=== PATIENT | male | born 1925 | race Caucasian/White ===

== ENCOUNTER 2016-10-26 19:11 | Inpatient (IN) | payer MEDICARE, OTHER ==
[~2016-10-26] VITALS: Ht 172.7 cm; Wt 72.0 kg
[~2016-10-26 19:11] MED LIST: ACET325C PO; BISA10SU61 RC; FINA5TAB9 PO; FLUO20CA25 PO; FURO-128 PO; HYDR-4003 PO; IBUP-1827 PO; ISOS30TA4 PO; LACT10SO PO; LOPE2CAP PO; MAG355OR31 PO; METO25TA99 PO; NITR0.4T6 SL; PINK BISMUTH PO; POTA-62 PO; PRAM0.122 PO; SENN-133 PO; TRAM50TA2 PO; ZOLP10TA5 PO
[2016-10-26 19:30] VITALS: BP 109/52; PULSE 72; RESP 17; O2SAT 95
[2016-10-26 20:00] LABS: BASOPHILS % (AUTO) 0.1 % (0-3); Mean Corpuscular Hemoglobin 33.7 pg (27.0-35.0)
[2016-10-26 20:04] LABS: EOSINOPHILS % (AUTO) 0.4 % (0-5); MONOCYTES % (AUTO) 4.9 % (4-12); Mean Corpuscular Volume 100.2 fL (81-100); NEUTROPHILS % (AUTO) 78.2 % (40-74); Platelet Count 119 bil/L (150-400)
[2016-10-26 20:40] LABS: TROPONIN T 0.08 ug/L (0.0-0.011)
[2016-10-26] MEDS: 0.9% Sodium Chloride 1,000 ML IV SCH ×2 (21:00→21:35)
--- NOTE | 2016-10-26 21:18 | ED.REPORT ---
HPI-Abd Pain M 40 and Over Date of Service Oct 26, 2016 ED Provider: Dr. Barber Apple D.O. An 89 year old male with a medical history including Parkinson's disease, CAD, atrial fibrillation, CHF, hypertension, dementia, and hearing loss presents to the ED via EMS from [facility] accompanied by his son with nausea and vomiting onset 1845 today. Associated symptoms include chest pain, shakiness , diarrhea, and fever (38.1 in ED). He denies abdominal pain or chest pain currently. Nursing Notes Stated Complaint: VOMITING/NAUSEA Chief Complaint: Male Abdominal Pain Nursing Notes Reviewed: Yes Allergies: Coded Allergies: Penicillins (Unverified Allergy, Unknown, 04/23/16) PT REPORTS A REACTION BUT DOES NOT RECALL EXPOSURE TO PCN Scheduled Acetaminophen (Acetaminophen) 325 Mg Capsule 650 MG PO TID Finasteride (Finasteride) 5 Mg Tablet 5 MG PO DAILY Fluoxetine (Fluoxetine) 20 Mg Capsule 20 MG PO DAILY Furosemide (Lasix) 40 Mg Tablet 60 MG PO BID Isosorbide MN ER (Isosorbide MN ER) 30 Mg Tab.er.24h 30 MG PO DAILY Metoprolol Succinate ER (Metoprolol Succinate ER) 25 Mg Tab.er.24h 12.5 MG PO DAILY Potassium Chloride ER (Potassium Chloride ER) 20 Meq Tablet.er 20 MEQ PO BID TAKE WITH FOOD Pramipexole Dihydrochloride (Mirapex) 0.125 Mg Tablet 0.125 MG PO QID Sennosides (Senna) 8.6 Mg Tablet 8.6 MG PO HS Zolpidem (Zolpidem) 10 Mg Tablet 5 MG PO HS Scheduled PRN ([pink bismuth]) 30 ML PO DAILY PRN PRN For Diarrhea or Loose Stool Acetaminophen (Acetaminophen) 325 Mg Capsule 650 MG PO q4 hours PRN PRN For Pain Bisacodyl (Dulcolax Rectal) 10 Mg Supp.rect 10 MG RC DAILY PRN PRN For Constipation Ibuprofen (Ibuprofen) 600 Mg Tablet 600 MG PO TID PRN PRN For Pain Mag Hydrox/Al Hydrox/Simeth (Antacid M Liquid) 355 Ml Oral.susp 355 ML PO QID PRN PRN For Dyspepsia or Heartburn Nitroglycerin SL (Nitroglycerin SL) 0.4 Mg Tab.subl 0.4 MG SL DIRECTED PRN PRN For Chest Pain General Time Seen by MD: 21:17 Chief Complaint Other (Nausea and Vomiting ) Hx Obtained From: Patient, Son Arrived By: Ambulance Sudden in Onset?: Yes Onset Occurred: 5 - 8 hours ago Symptom Duration: Since onset Severity: Current: No pain currently Associated with: Reports: Chest pain, Diarrhea, Fever Pertinent Negative: Relieved by nothing Recent Healthcare: No recent doctor visit Past Medical History Past Medical History Parkinson's disease CAD Atrial Fibrillation Basal cell carcinoma left sikh Dementia CVA Functional paraplegia Hearing loss Reports: Congestive heart failure, Hypertension Past Surgical History Left axillary mass biopsy Pacemaker placement Smoking History Former Smoker Social History [facility] Other Social History: Good social support, Lives in halfway Ambulatory Status Independent Review of Systems Constitutional: Reports: Fever (38.1 in ED) Respiratory: Denies: Non-productive cough, Shortness of breath Cardiovascular: Reports: Chest pain (Resolved) GI: Reports: Diarrhea, Nausea, Vomiting, Denies: Abdominal pain Complete sys rev & neg: except as marked. Neurologic: Reports: Shaking Physical Exam Initial Vital Signs Vital Signs (First) Date Time Temp Pulse Resp B/P Pulse Ox O2 Delivery O2 Flow Rate FiO2 10/26/16 19:30 38.1 72 17 109/52 95 Room Air 10/26/16 23:11 2 Initial VS: Reviewed Head / Eyes: Atraumatic, Normocephalic Neck: Supple, Full range of motion Skin: Warm, Dry, No cyanosis Neurologic: Alert, Nonfocal Psychiatric: Mood/affect normal, Behavior normal, Normal thought content General/Constitutional: Awake, Alert Demented but answers questions well Respiratory / Chest: Breath sounds NL, Breath sounds = bilat, No respiratory distress Cardiovascular: Heart rate NL, Regular rhythm, Heart sounds NL Abdomen: Soft Tenderness/Guarding/Rebound: Positive: Tender diffuse (Grimaced on palpation) ENT: Atraumatic, Airway patent Mouth: Positive: Mucous membranes dry Interpretation & Diagnostics Lab Results Interpretation Result Diagram: 10/27/1619910/27/16 020 Test 10/26/16 19:50 Hold Christy Top Tube Received (Received) ECG Interpretation ECG Interpretation: Sinus rhythm rate 77 Frequent PVCs No STEMI Time: 20:09 Interpreted by: ED physician X-Ray Chest Interpretation Chest Xray Interpretation: IMPRESSION: Right pleural effusion with bibasilar consolidation or atelectasis. Dictated by: Michelle Francois M.D. on 10/26/2016 at 21:24 View: Portable, 1 view Interpretation / Wet Read by: Interpret - Radiologist CT Abd / Pelvis Interpretation CONCLUSION: No specific acute abdominal process. Right pleural effusion. Correlate with history. Mild prominence of the left renal collecting system associated with some irregularity fo the bladder. Urinary tract infection and bladder outlet obstruction can be excluded clinically. Low density lesions in the liver, probably cysts. These may need follow-up to confirm. Small cortical lesions in both kidneys. These also may need follow-up depending on history. Atherosclerotic vascular disease. Transmitted to ED by Dr. Antolin Day M.D. at 10/26/2016 - 10:44:38 Study type: Abdominal CT no contrast Interpretation / Wet Read by: Interpret - Radiologist Re-Eval/Medical Decision Source of Hx: Old records Time of Eval: 21:30 Patient Status: Condition improved Re-Evaluation/Progress Note: Discussed with patient diagnosis and plan for admit. Patient agrees with plan for care and all questions were addressed. Consultation : Referral / Consult Name: Aime Marie MD Consulted With: Hospitalist Call Returned at: 00:15 Public Employment Mediator: Agrees with eval, Agrees with plan, Accepts admit Counseled Regarding: Diagnosis, Need for admission Discharge & Departure Shift Change Sign-Out Response to Therapy: Improved Primary Impression: Gastroenteritis Additional Impressions: Fever Fever type: unspecified Qualified Code: R50.9 - Fever, unspecified Chest pain Chest pain type: unspecified Qualified Code: R07.9 - Chest pain, unspecified Elevated troponin Disposition: ADMITTED TO HOSPITAL Vital Signs - All Vital Signs Date Time Temp Pulse Resp B/P Pulse Ox O2 Delivery O2 Flow Rate FiO2 10/27/16 00:54 78 16 94/49 92 Nasal Cannula 2 10/26/16 23:37 79 15 103/53 94 Nasal Cannula 2 10/26/16 23:11 82 15 90/44 96 Nasal Cannula 2 10/26/16 23:05 82 16 80/42 92 Room Air 10/26/16 19:30 38.1 72 17 109/52 95 Room Air )( All Prior VS Reviewed: Yes Condition: Stable Referrals: Christiano De Anda MD (PCP) Scribe Attestation Portions of this note were transcribed by Jacque Ponce. Dr. Ambika Bloom, personally performed the history, physical exam, and medical decision-making; I reviewed and confirmed the accuracy of the information in the transcribed note. Signed by: Niko Menjivar, 10/27/2016, 01:47 copies to: Christiano De Anda MD, Todd P DO Oct 26, 2016 21:18 JACQUE PONCE Oct 26, 2016 21:42 Total Protein 6.2g/dL (6.4-8.4) Albumin 3.0g/dL (3.4-5.0) Hold Christy Top Tube Received (Received) ECG Interpretation ECG Interpretation: Sinus rhythm rate 77 Frequent PVCs No STEMI Time: 20:09 Interpreted by: ED physician X-Ray Chest Interpretation Chest Xray Interpretation: IMPRESSION: Right pleural effusion with bibasilar consolidation or atelectasis. Dictated by: Michelle Francois M.D. on 10/26/2016 at 21:24 View: Portable, 1 view Interpretation / Wet Read by: Interpret - Radiologist CT Abd / Pelvis Interpretation CONCLUSION: No specific acute abdominal process. Right pleural effusion. Correlate with history. Mild prominence of the left renal collecting system associated with some irregularity fo the bladder. Urinary tract infection and bladder outlet obstruction can be excluded clinically. Low density lesions in the liver, probably cysts. These may need follow-up to confirm. Small cortical lesions in both kidneys. These also may need follow-up depending on history. Atherosclerotic vascular disease. Transmitted to ED by Dr. Antolin Day M.D. at 10/26/2016 - 10:44:38 Study type: Abdominal CT no contrast Interpretation / Wet Read by: Interpret - Radiologist Re-Eval/Medical Decision Source of Hx: Old records Time of Eval: 21:30 Patient Status: Condition improved Re-Evaluation/Progress Note: Discussed with patient diagnosis and plan for admit. Patient agrees with plan for care and all questions were addressed. Consultation : Referral / Consult Name: Aime Marie MD Consulted With: Hospitalist Call Returned at: 00:15 Public Employment Mediator: Agrees with eval, Agrees with plan, Accepts admit Counseled Regarding: Diagnosis, Need for admission Discharge & Departure Shift Change Sign-Out Response to Therapy: Improved Primary Impression: Gastroenteritis Additional Impressions: Fever Fever type: unspecified Qualified Code: R50.9 - Fever, unspecified Chest pain Chest pain type: unspecified Qualified Code: R07.9 - Chest pain, unspecified Elevated troponin Disposition: ADMITTED TO HOSPITAL Vital Signs - All Vital Signs Date Time Temp Pulse Resp B/P Pulse Ox O2 Delivery O2 Flow Rate FiO2 10/27/16 00:54 78 16 94/49 92 Nasal Cannula 2 10/26/16 23:37 79 15 103/53 94 Nasal Cannula 2 10/26/16 23:11 82 15 90/44 96 Nasal Cannula 2 10/26/16 23:05 82 16 80/42 92 Room Air 10/26/16 19:30 38.1 72 17 109/52 95 Room Air )( All Prior VS Reviewed: Yes Condition: Stable Referrals: Christiano De Anda MD (PCP) Scribe Attestation Portions of this note were transcribed by Jacque Ponce. I, Dr. Apple, personally performed the history, physical exam, and medical decision-making; I reviewed and confirmed the accuracy of the information in the transcribed note. Signed by: Niko Menjivar, 10/27/2016, 01:47 copies to: Christiano De Anda MD, Todd P DO Oct 26, 2016 21:18 JACQUE PONCE Oct 26, 2016 21:42
--- NOTE | 2016-10-26 21:26 | DRSVH ---
PROCEDURE: X-RAY CHEST ONE VIEW, PORTABLE ([id number]) INDICATIONS: FEVER COUGH TECHNIQUE: One view of the chest was acquired. COMPARISON: [facility], CT, CT CHEST WO [facility], 03/29/2016, 12:07. [facility], CT, CT CHEST ABD PELVIS WO CON, 07/08/2016, 14:18. FINDINGS: Surgical changes and devices: There is a cardiac pacemaker. Lungs and pleura: There is a small right pleural effusion with right basilar consolidation or atelec tasis. No pneumothorax. Mediastinum: Mediastinal contours appear normal. Heart size is normal. Bones and chest wall: No suspicious bony lesions. Overlying soft tissues appear unremarkable. IMPRESSION: Right pleural effusion with bibasilar consolidation or atelectasis. Dictated by: Michelle Francois M.D. on 10/26/2016 at 21:24 Approved by: Michelle Francois M.D. on 10/26/2016 at 21:25
[2016-10-26] MEDS ORDERED: Ondansetron 2 mg/mL 2 mL Inj IVPUSH PRN (21:30)
[2016-10-26] MEDS ORDERED: Iohexol 300 mg/mL 30 mL Inj PO ONE (21:45)
[2016-10-26] MEDS ORDERED: fentaNYL-PF 50 mCg/mL 2 mL Inj IVPUSH ONE (21:45)
[2016-10-26] MEDS ORDERED: 0.9% Sodium Chloride 1,000 ML IV ONE (23:00)
[2016-10-26] MEDS ORDERED: Acetaminophen IV 1,000 MG in IV Premix 1 EACH IV ONE (23:00)
[2016-10-26 23:05] VITALS: BP 80/42; PULSE 82; RESP 16; O2SAT 92
[2016-10-26 23:11] VITALS: BP 90/44; PULSE 82; RESP 15; O2SAT 96
[2016-10-26 23:37] VITALS: BP 103/53; PULSE 79; RESP 15; O2SAT 94
[2016-10-27] VITALS (10 sets, daily range): BP systolic 87–115; BP diastolic 47–69; PULSE 65–101; RESP 14–18; O2SAT 92–98
[2016-10-27] MEDS ORDERED: 0.9% Sodium Chloride 500 ML IV ONE (00:05)
[2016-10-27] MEDS ORDERED: Polyethylene Glycol (PEG) 17 Gm Powder PO PRN (01:25)
[2016-10-27] MEDS ORDERED: Ondansetron 2 mg/mL 2 mL Inj IVPUSH PRN (01:25)
[2016-10-27] MEDS ORDERED: Alum-Mag Hydrox-Simeth 30 mL Suspension PO PRN (01:25)
[2016-10-27 02:25] LABS: BASOPHILS % (AUTO) 0 % (0-3); Mean Corpuscular Hemoglobin 33.5 pg (27.0-35.0); Mean Corpuscular Volume 101.4 fL (81-100); Platelet Count 112 bil/L (150-400)
--- NOTE | 2016-10-27 02:31 | PCM.HPMED ---
Subjective Date of Service Oct 27, 2016 Primary Provider: Admitting Physician: Aime Marie MD Primary Care Physician: Christiano De Anda MD Attending Physician: Aime Marie MD Chief Complaint: Nausea, vomiting, diarrhea History of Present Illness: Patient is an 89-year-old male with dementia, Parkinson's disease, CAD, CHF, atrial fibrillation and hypertension presenting with nausea, vomiting and diarrhea. The patient is a resident of [facility] and unable to provide any meaningful history. At time of visit there is no family at bedside. Much of the history is obtained from chart review. Patient reportedly had complaints of chest pain, nausea, vomiting and diarrhea at his living facility but it was noted that the patient denied chest pain en route to [facility] ED. At time of visit, the patient reports feeling well without complaints. Patient denies chest pain, nausea, emesis, diarrhea, abdominal pain, cough, chills. CT scan of abdomen and pelvis reads mild prominence of the left renal collecting system associated with some irregularity of the bladder; low density lesions in the liver, probable cysts, and small cortical lesions in both kidneys, otherwise no specific acute abdominal process was identified . In the ED, vitals: temp 38.1, HR 72, RR 17 satting 95% on room air, BP 109/52. Notable labs: creatinine 1.49, troponin 0.080. Review of Systems: Unable to obtain due to dementia Allergies Coded Allergies: Penicillins (Unverified Allergy, Unknown, 04/23/16) PT REPORTS A REACTION BUT DOES NOT RECALL EXPOSURE TO N Home Medications Unable to obtain. Medication reconciliation needs to be completed PMH Parkinson's disease CAD Atrial fibrillation Hypertension Dementia Hearing loss Diastolic CHF Sick sinus syndrome s/p PPM CVA Basal cell carcinoma left sikh History of prostate cancer Functional paraplegia uses a wheelchair due to balance problems . Surgical History Left axillary mass biopsy Pacemaker placement Family History Mother and father of "old age" Social History Occupation: Retired Hx Alcohol Use: No Hx Substance Use: No Smoking Status: Former Smoker Living Arrangement: Other ([facility]) Exam Vital Signs Vital Sign - Last Date Time Temp Pulse Resp B/P Pulse Ox O2 Delivery O2 Flow Rate FiO2 10/27/16 01:23 36.5 74 16 95/49 98 Nasal Cannula 2.00 Intake and Output 2/04/0410/26/16 10/27/16 Cumulative From/Thru 15:00 23:00 07:00 10/26/16 19:30 - 10/27/16 01:23 Intake Total 2000 ml 2000 ml Balance 2000 ml 2000 ml Intake IV Total 2000 ml 2000 ml Exam General: Patient lying supine in bed. No acute distress, well-developed, well- nourished, appropriately interactive HEENT: Normocephalic, atraumatic. Pupils equal, round, and reactive to light. Anicteric sclerae. Dry mucous membranes. Hearing aids bilaterally. Left temporal area with a ulcerated lesion. Neck: Supple with full range of motion. No jugular venous distension. No bruits. No lymphadenopathy or thyromegaly. Cardiovascular: Regular rate and rhythm with no murmurs, rubs, or gallops appreciated. Left chest wall with pacemaker. Pulmonary: Clear to auscultation bilaterally. Normal respiratory effort with no use of accessory muscles. Abdomen: Bowel tones present. Nontender, nondistended. Extremities: Bilateral lower extremities with moderate pitting edema just distal to the knees, left>right. Right lower extremity with some erythema. Skin: Diffuse seborrheic keratosis throughout upper body. Neurological: Cranial nerves grossly intact. Psychiatric: Normal mood and affect. Lab and Diagnostics Result Diagram: 10/26/16194910/26/161949 X-Rays, CTs and MRIs Exam date: 10/26/2016 CT ABDOMEN AND PELVIS CONCLUSION: No specific acute abdominal process. Right pleural effusion. Correlate with history. Mild prominence of the left renal collecting system associated with some irregularity of the bladder. Urinary tract infection and bladder outlet obstruction should be excluded clinically. Low density lesions in the liver, probably cysts. These may need followup to confirm. Small cortical lesions in both kidneys. These also may need followup depending on history. Atherosclerotic vascular disease. Radiologist: Antolin Day MD ----- Date of Service: 10/26/161950 PROCEDURE: X-RAY CHEST ONE VIEW, PORTABLE ([id number]) INDICATIONS: FEVER COUGH TECHNIQUE: One view of the chest was acquired. COMPARISON: [facility], CT, CT CHEST WO CON, 03/29/2016, 12:07. [facility], CT, CT CHEST ABD PELVIS WO CON, 07/08/2016, 14:18. FINDINGS: Surgical changes and devices: There is a cardiac pacemaker. Lungs and pleura: There is a small right pleural effusion with right basilar consolidation or atelectasis. No pneumothorax. Mediastinum: Mediastinal contours appear normal. Heart size is normal. Bones and chest wall: No suspicious bony lesions. Overlying soft tissues appear unremarkable. IMPRESSION: Right pleural effusion with bibasilar consolidation or atelectasis. Dictated by: Michelle Francois M.D. on 10/26/2016 at 21:24 Approved by: Michelle Francois M.D. on 10/26/2016 at 21:25 Assessment & Plan Patient is an 89-year-old male with dementia, Parkinson's disease, CAD, CHF, atrial fibrillation and hypertension presenting with nausea, vomiting and diarrhea and admitted for elevated troponin and hypotension. 1. Acute nausea, vomiting and diarrhea. Present on admission. Active -CT scan did not identify any acute abdominal process -Likely infectious etiology -Supportive care with Zofran PRN -Gentle IV fluids -Stool PCR pending 2. Elevated troponin. Acute. Present on admission. Active -Troponin 0.080 -Patient has history of mildly elevated troponin but has cardiac risk factors including: age, hypertension, atherosclerotic vascular disease -Elevation in troponin possibly demand. EKG without ST elevation or depression. Repeat EKG in the AM -Trending troponin 3. Acute kidney injury, unknown acuity. Present on admission. Active -Creatinine 1.49 on admit. Normal creatinine 06/2016 -Likely from volume depletion as result of #1 -Gentle IV fluids -CMP 4. Acute hypotension. Present on admission. Active -BP 80/42 in the ED -Likely secondary to volume depletion from #1 -Gentle IV fluids 5. Thrombocytopenia, unknown acuity. Present on admission. Active -Mild decreased platelets [id number] -Uncertain etiology - possibly infection, medication-induced -Follow with CBC 6. Diastolic heart failure, chronic. Present on admission. Stable -Echocardiogram from 03/2016 shows EF 55-60% with inferior wall moderate hypokinesis and septal motion consistent with conduction abnormality -Will hold Lasix due to hypotension. Reassess fluid status in AM 7. Pleural effusion, chronic. Present on admission -Present on previous imaging studies going back to 2012 8. Atrial fibrillation, chronic. Present on admission -Currently rate controlled 9. Essential hypertension, chronic. Present on admission -Currently hypotensive, see #4 above -Hold antihypertensives Medication reconciliation requires completion Patient Status: Patient is admitted under observation status with expected length of stay less than 2 midnights due to risk of adverse event and complexity of treatment plan VTE Prophylaxis: Sub-Q Heparin (Unfractionated) Resuscitation Status: DNR/DNI:Do Not Resuscitate/Intubate (Personally discussed code status with patient's next of kin and son, Yanick Hollingsworth )) Attending Statement The patient was seen and examined together with Dr. Beltran on 10/27 and I agree with the history, exam and plan as outlined in the note above. Hussein Beltran DO Oct 27, 2016 02:31 Aime Marie MD Oct 27, 2016 03:07
[2016-10-27 02:45] LABS: EOSINOPHILS % (AUTO) 0 % (0-5); MONOCYTES % (AUTO) 12 % (4-12); NEUTROPHILS % (AUTO) 66 % (40-74)
[2016-10-27 03:10] LABS: TROPONIN T 0.075 ug/L (0.0-0.011)
[2016-10-27] MEDS ORDERED: 0.9% Sodium Chloride 1,000 ML IV ONE (03:35)
--- NOTE | 2016-10-27 07:37 | NUR ---
Admit/BG Pt arrived to [facility] @ 0120 to RM 2022. Pt wheelchair at baseline and unable to transfer self to bed. Pt has dementia and unable to provide history but able to give birthdate and last name. Admission completed with records from pt residence and Med rec unable to be completed at this time. Pt will be Q2 turns and is incontinent of stool and urine. Around 0530 pt showed signs of rigors but was afebrile and breathing very hard, SpO2 difficult to obtaine r/t shaking. Pt BP 110/74 and BG check and was 68, Pt able to drink Iuka juice and Apple juice and was able to become more calm and less shaky and fell back asleep. DAY RN will recheck BG. VSS and Tele Aflutter with pacing 70's to 80's.
[2016-10-27] MEDS: Heparin 5,000 Unit/mL Inj SUBQ SCH ×3 (09:06→20:06)
--- NOTE | 2016-10-27 09:08 | DRSVH ---
PROCEDURE: CT ABDOMEN AND PELVIS WITHOUT CONTRAST ([id number]) INDICATIONS: 89 year-old man with abdominal pain, vomiting, renal insufficiency. TECHNIQUE: After administration of oral contrast, 5 mm thick sections acquired from the diaphragms to the symphy sis. 5 mm coronal and sagittal reformats were then performed. For radiation dose reduction, the fol lowing was used: automated exposure control, adjustment of mA and/or kV according to patient size. COMPARISON: Merged With [facility], CR, XR CHEST 1VW (PORTABLE), 10/26/2016, 20:11. [facility], CT, CT NECK CHEST ABD PELVIS W CON, 04/19/2016, 12:59. Merged With [facility], CT, CT CHEST A BD PELVIS WO CON, 07/08/2016, 14:18. FINDINGS: Image quality: Excellent. ABDOMEN: Lung bases: There is a moderate right pleural effusion and trace left effusion, unchanged. Bibasilar atelectasis. Heart size is mildly increased. Solid organs: There are several low density nodules are noted in the liver, measuring up to 1.3 cm. L iver and spleen are normal in size. Gallbladder contains sludge or noncalcified stones. Pancreas is normal in contours. No adrenal nodules. Kidneys are normal in size. There is a 9 mm hyperdense ex ophytic nodule in the superior pole of the right kidney. Mild left pelviectasis. Peritoneum and bowel: Unenhanced bowel loops demonstrate normal wall thickness and caliber. No free fluid or air. Nodes and vessels: No retroperitoneal or mesenteric adenopathy by size criteria. Aorta and inferior vena cava are normal in caliber. Severe atherosclerosis. Miscellaneous: No ventral hernias. PELVIS: Genitourinary: Bladder is semicontracted. Mild bladder wall thickening is noted. There is a small bl adder diverticulum in the anterior bladder. Enlarged prostate. Miscellaneous: No inguinal hernias or adenopathy. Bones: No suspicious bony lesions. No vertebral body compression fractures. There is osteopenia. S evere degenerative disc disease i and facet arthropathy n lumbar spine. There is posterior decompress ion in the lower lumbar spine. IMPRESSION: 1. No definitive CT findings to abdominal pain. 2. Mild left pelviectasis. No renal calculi. 3. A 9 mm hyperdense exophytic nodule in the superior pole of the right kidney. Recommend further george luation with renal ultrasound to rule out solid renal masses. 4. Contracted bladder. The bladder wall maybe slightly thickened. There is a small bladder diverticul um anteriorly. 5. Enlarged prostate. 6. Severe atherosclerosis. 7. Moderate right effusion and trace left effusion. 8. Mild cardiomegaly. No significant discrepancy with the night court magistrate radiology preliminary report. Dictated by: Michelle Francois M.D. on 10/27/2016 at 8:41 Approved by: Michelle Franocis M.D. on 10/27/2016 at 9:06
[2016-10-27] MEDS ORDERED: Bismuth Subsalicylate 240 mL Suspension PO PRN (15:55)
--- NOTE | 2016-10-27 17:23 | NUR ---
Case Management: Patient has dementia, so I called his son Yanick at [phone] at 1724 to explain HENSON. Yanick states he has DPOA for healthcare. Yanick lives in [place] and has already been here today. His plan is to come by tomorrow afternoon. I informed Yanick that I will leave copy of the HENSON and "How Medicare Covers Self-Administered Drugs Given in Hospital Outpatient Settings" at the bedside for him to review. I also provided Yanick with my phone number to call if he has any questions. Tg Hobson RN
--- NOTE | 2016-10-27 17:28 | NUR ---
Wound PUP received, pt seen at bedside. 89 yo male with parkonsionism, presenting with nausea, vomiting and diarrhea. Skin assessment reveals dusky purple right heel that does jonathon, no pressure related skin issues noted at this time. Recommend P500 bed, float heels and frequent repositioning.
--- NOTE | 2016-10-27 17:57 | PCM.PNMED ---
Subjective Date of Service Oct 27, 2016 Subjective Mr. Hollingsworth is an 89-year-old male with dementia, Parkinson's disease, coronary artery disease, congestive heart failure, atrial fibrillation, and hypertension presenting with nausea, vomiting and diarrhea. The patient is a resident of [facility] and unable to provide any meaningful history. Today is hospital day 1. He does not have chest pain, shortness of breath, nausea, vomiting, or diarrhea. He states that he feels normal. His only concern is that he has troubling remembering things sometimes. His son reports that his main concern for his father is his fluid status and was made aware that he was sent to the hospital last night [facility]. From the nurse at [facility], patient was sent to the emergency department because his oxygen saturation dropped to the low to mid 80s on room air and patient does not normally need oxygen. He had 1 episode of loose stool prior to going on the ambulance and 1 episode of a small amount of emesis when he got onto the ambulance. His blood pressure is usually low with systolic blood pressures in the 90s. He has chronic leg edema that they are not concerned about. They only use furosemide if his lungs are no longer clear to auscultation. He saw the family development specialist last month and had his pacemaker checked. He has lymphoma, which is stable and his next follow up is in January 2017. He was on hospice for a period of time for congestive heart failure years ago. Per nursing, he had 1 episode of stool incontinence overnight. Exam Vital Signs Vital Sign - Last Date Time Temp Pulse Resp B/P Pulse Ox O2 Delivery O2 Flow Rate FiO2 10/27/16 11:27 36.7 101 18 93/55 96 Nasal Cannula 2.00 Intake and Output 10/26/16 10/26/16 10/27/16 Cumulative From/Thru 15:00 23:00 07:00 10/26/16 19:30 - 10/27/16 06:19 Intake Total 2240 ml 2240 ml Balance 2240 ml 2240 ml Intake Oral 240 ml 240 ml IV Total 2000 ml 2000 ml # Voids 3 3 Exam General: Patient lying supine in bed. Thin. No acute distress, well-developed, appropriately interactive HEENT: Normocephalic, atraumatic. Pupils equal, round, and reactive to light. Anicteric sclerae. Dry mucous membranes. Hearing aids bilaterally. Left temporal area with a ulcerated lesion. Neck: Supple with full range of motion. No jugular venous distension. No bruits. No lymphadenopathy or thyromegaly. Cardiovascular: Regular rate and rhythm with no murmurs, rubs, or gallops appreciated. Left chest wall with pacemaker. Pulmonary: Mild diffuse end-expiratory wheezing bilaterally. Normal respiratory effort with no use of accessory muscles. Abdomen: Bowel tones present. Nontender, nondistended. Extremities: Bilateral lower extremities with moderate pitting edema just distal to the knees, left>right. Right lower extremity with some erythema. Skin: Diffuse seborrheic keratosis throughout upper body. Neurological: Patient is oriented to person. Cranial nerves grossly intact. Short term memory deficit. Psychiatric: Normal mood and affect. IVs and Medications Medications Reviewed: Medications were reviewed in detail Lab and Diagnostics Result Diagram: 10/27/1619910/27/16199 X-Rays, CTs and MRIs CT ABDOMEN AND PELVIS Exam date: 10/26/2016 CONCLUSION: No specific acute abdominal process. Right pleural effusion. Correlate with history. Mild prominence of the left renal collecting system associated with some irregularity of the bladder. Urinary tract infection and bladder outlet obstruction should be excluded clinically. Low density lesions in the liver, probably cysts. These may need followup to confirm. Small cortical lesions in both kidneys. These also may need followup depending on history. Atherosclerotic vascular disease. Radiologist: Antolin Day MD ----- PROCEDURE: X-RAY CHEST ONE VIEW, PORTABLE IMPRESSION: Right pleural effusion with bibasilar consolidation or atelectasis. Approved by: Michelle Francois M.D. on 10/26/2016 at 21:25 12-lead ECG Sinus rhythm rate 77 with premature ventricular contractions No ST elevation myocardial infarction Assessment & Plan Mr. Hollingsworth is an 89-year-old male with dementia, Parkinson's disease, coronary artery disease, congestive heart failure, atrial fibrillation, and hypertension presenting with nausea, vomiting and diarrhea. The patient is a resident of [facility] and unable to provide any meaningful history. Today is hospital day 1. 1. Acute nausea, vomiting, and diarrhea. Present on admission. Improved. -Most likely, an acute mild gastroenteritis. Patient only had 1 episode of a small amount of emesis and 1 reported loose stool and incontinence of stool once. He has not vomited while admitted. -Patient initially was febrile in the emergency department, but most recent temperature 36.8 degrees C. -CT scan did not identify any acute abdominal process -Stool PCR all are negative -Influenza A negative -Continue supportive care with ondansetron as needed -Patient received intravenous normal saline at rate of 80 mL/hour -Swallow evaluation ordered to look for dysphagia 2. Elevated troponin. Acute. Present on admission. Active -senior living reports oxygen desaturation in the 80s as the reason for being sent to the emergency department -Patient denies chest pain and dyspnea -Oxygen saturations have been 92%-98% on nasal cannula 2 liters oxygen -Troponin 0.080 initially and third troponin 0.079 -Patient has history of mildly elevated troponin but has cardiac risk factors including: age, hypertension, atherosclerotic vascular disease -Elevation in troponin possibly demand ischemia or related to chronic congestive heart failure. EKG without ST elevation or depression. Repeat EKG in the morning did not show significant changes from previous EKG. -Procalcitonin ordered for tomorrow morning 3. Acute kidney injury, unknown acuity. Present on admission. Active -Creatinine 1.49 on admit and 1.59 this morning -Previous creatinine 05/07/2016 1.33 -Likely from volume depletion as result of #1 -Patient given intravenous normal saline at rate of 80 mL/hour but discontinued this afternoon to avoid volume overloading the patient secondary to his congestive heart failure and holding his furosemide. -Continue to monitor complete metabolic panel in the morning 4. Acute hypotension. Present on admission. Active -BP 80/42 in the emergency department but increased to 93/48 this morning -Likely secondary to volume depletion from #1 -Patient given intravenous normal saline at rate of 80 mL/hour but discontinued this afternoon to avoid volume overloading the patient secondary to his congestive heart failure and holding his furosemide. -Continue to monitor 5. Thrombocytopenia, unknown acuity. Present on admission. Active -Mild decreased platelets initially [id number] -Uncertain etiology - possibly infection, medication-induced, or lymphoma -Follow with complete blood count 6. Diastolic heart failure, chronic. Present on admission. Stable -Echocardiogram from 03/2016 shows ejection fraction of 55-60% with inferior wall moderate hypokinesis and septal motion consistent with conduction abnormality -Will hold furosemide due to hypotension -Patient given intravenous normal saline at rate of 80 mL/hour but discontinued this afternoon to avoid volume overloading the patient secondary to his congestive heart failure and holding his furosemide. 7. Pleural effusion, chronic. Present on admission -Present on previous imaging studies going back to 2012 8. Atrial fibrillation, chronic. Present on admission -Currently rate controlled -Continue home medication metoprolol 12.5 mg daily 9. Essential hypertension, chronic. Present on admission -Currently hypotensive, see #4 above -Hold furosemide -Continue other home medications as patient's baseline systolic blood pressure in the 90s as reported by nursing staff at [facility] -Continue to monitor 10. Other chronic disease: dementia, Parkinson's -Continue home medications DVT prophylaxis: heparin every 8 hours Senna and Miralax as needed for constipation Acetaminophen as needed for pain Patient Status: Patient is admitted under observation status with expected length of stay less than 2 midnights due to risk of adverse event and complexity of treatment plan VTE Prophylaxis: Sub-Q Heparin (Unfractionated) Resuscitation Status: DNR/DNI:Do Not Resuscitate/Intubate (Personally discussed code status with patient's next of kin and son, Yanick Hollingsworth ([phone])) Attending Statement The patient was seen and examined together with Dr. Mabry on 10/27/2016 and I agree with the history, exam and plan as outlined in the note above. . Ade Mabry DO Oct 27, 2016 11:44 Justin Alford MD Oct 30, 2016 08:12
--- NOTE | 2016-10-27 19:21 | NUR ---
A&O/wound consult Pt was resting comfortably all shift. Cardiac: Pt denies CP, Tele Aflutter/Paced 70's to 80's Resp: Pt denies SOB. SPO2 mid 90s on 2L NC. GI/: Pt denies n/v. speech eval ordered. Pt currently staci powers, 1:1. Neuro: Pt is WC bound at baseline per report, pt has dementia and is only A&Ox1 to self. Parkinson shaking increased throughout shift. pamiprexole started this evening. Wound care consulted, recommends P500.
[2016-10-27] MEDS: Potassium Chloride 20 mEq SR Tablet PO SCH (20:06)
--- NOTE | 2016-10-27 23:41 | NUR ---
MENTATION/WOUND Pt alert to self and confused with answering questions with RN. Vitals stable, no c/o pain or SOB on 2L NC. Pt has slight purple discoloration to the right heel, seen by wound care. Pt is pleasant and cooperative. Incont. of B&B, bedrest, Q2 turns.
[2016-10-28] VITALS (8 sets, daily range): BP systolic 89–120; BP diastolic 54–73; PULSE 83–102; RESP 16–28; O2SAT 93–99
[2016-10-28 03:10] LABS: BASOPHILS % (AUTO) 0 % (0-3); Mean Corpuscular Hemoglobin 33.8 pg (27.0-35.0); Mean Corpuscular Volume 100.8 fL (81-100); Platelet Count 110 bil/L (150-400)
[2016-10-28 04:43] LABS: EOSINOPHILS % (AUTO) 0 % (0-5); MONOCYTES % (AUTO) 7 % (4-12); NEUTROPHILS % (AUTO) 75 % (40-74)
--- NOTE | 2016-10-28 04:53 | NUR ---
FEBRILE/+ BLOOD CULTURES Pt had blood cultures come back + for gram variable rods and pt had a fever @ 0300 of 101.2. MD notified and new orders for Flagyl and cefepime were given. Pt was slightly hypotensive @ 97/54. No c/o pain, SOB, N/V. Pt did have loose stool x1.
[2016-10-28] MEDS ORDERED: metroNIDAZOLE Inj 1,000 MG in IV Premix 1 EACH IV SCH (05:00)
[2016-10-28] MEDS: Cefepime Inj 2,000 MG in Dextrose 5% Minibag Plus 50 ML IV SCH (05:46)
[2016-10-28] MEDS: Isosorbide Mononitrate 30 mg ER24 Tablet PO SCH (10:25)
[2016-10-28] MEDS: MeTOProlol XL 25 mg ER24 Tablet PO SCH (10:27)
[2016-10-28] MEDS: Potassium Chloride 20 mEq SR Tablet PO SCH ×2 (10:27→20:10)
[2016-10-28] MEDS: Heparin 5,000 Unit/mL Inj SUBQ SCH ×3 (10:30→20:11)
[2016-10-28] MEDS: 0.9% Sodium Chloride 1,000 ML IV SCH ×3 (10:45→23:56)
[2016-10-28 13:33] LABS: APPEARANCE,URINE HAZY (CLEAR,HAZY); COLOR,URINE YELLOW (YELLOW); OCCULT BLOOD,URINE LARGE (NEGATIVE); UROBILINOGEN,URINE 0.2 mg/dL (NORMAL)
--- NOTE | 2016-10-28 13:39 | NUR ---
Case Management: Clarification of patient status: inpatient per MD order on 10/28/16. Yoon Mckee RN
--- NOTE | 2016-10-28 15:37 | CONS ---
[address] [address] CONSULTATION REPORT PATIENT: RUBI WORTHY : 1925 MR#: [id number] ADMIT: 10/27/2016 JOB ID: [id number] DATE OF SERVICE: 10/28/2016 INFECTIOUS DISEASE CONSULT: REASON FOR CONSULT: Septic shock secondary to gram-negative bacteremia. HISTORY OF THE PRESENT ILLNESS: The patient is an 89-year-old gentleman with dementia, Parkinson disease and underlying cardiac disease. He resides in a memory care center in the local area. He was sent here from the [facility] care facility yesterday with complaints of nausea, vomiting and diarrhea. When he was admitted, however, the patient, who was verbal but not oriented, basically denied these symptoms, so was quite unclear what was going on. Because he was hypotensive and had fever in the emergency department, he was broadly cultured and started on antibiotics. This afternoon when I was asked to see the patient, I found him sitting up on the side of his bed dangling his feet. He appeared quite comfortable. He is clearly not at all oriented, as he believes we are all in [facility] and not in the hospital. He has absolutely no idea as to time or recent events and so, the history is unreliable at best. The patient basically tells me he is asymptomatic and has been and so, he is unable to provide any insight into the reason for his transfer and admission. He has no idea that he lives, in fact, at a [facility] [place] [facility]. PAST MEDICAL HISTORY: 1. Parkinson disease. 2. Dementia. 3. Organic heart disease: a. AFib. b. CHF. c. Coronary artery disease. d. Pacer. 4. Hypertension. 5. History of CVA. SOCIAL HISTORY: The patient resides in a nursing home facility. He is a former cigarette smoker who does not currently drink alcohol. There are no family members available, so I am unable to get any more details about his social milieu, and these details I have were obtained from the chart. FAMILY HISTORY: Cannot be obtained from this demented and somewhat confused patient. REVIEW OF SYSTEMS: Can be obtained from the patient but it is entirely negative. He basically says he has no symptoms and denies specifically headache, visual change, sore throat, cough, shortness of breath, nausea, vomiting, diarrhea, abdominal pain, or any other symptom. PHYSICAL EXAMINATION: Reveals a comfortable enough elderly gentleman sitting on the side of his bed. He has been afebrile throughout his now 36 hours in the ED and the hospital. He is currently 38.5. Pulse 91, respiratory rate 22, blood pressure 92/56. He is saturating well on 2 L and is not requiring any vasopressor support. Examination of the mental status reveals he is oriented x1 with no idea as to date or place. He has obvious temporal wasting and conjunctival pallor. No scleral icterus is seen. His oral cavity is notable for dry mucous membranes, but no thrush. His supraclavicular areas are very hollowed out consistent with perhaps weight loss or malnutrition. No cervical or supraclavicular adenopathy is appreciated. The patient's lungs are relatively clear, and he moves moderate amounts of air with some crackles at the bases. Cardiac tones are irregular rate and rhythm without significant murmur. The patient's abdomen is soft and without tenderness. No ascites or hepatosplenomegaly are appreciated. No suprapubic fullness is noted. The patient does not have a Samuels catheter and is wearing diapers. He has no suprapubic tenderness. No flank pain. His extremities are mildly edematous around the feet and ankles but they are reasonably well perfused and warm. There is no evidence for synovitis in the knees, ankles, elbows, or shoulders. Neurologically, the patient has a tremendous cogwheeling rigidity. Surprisingly, his strength in the extremities is well preserved, despite his fairly advanced Parkinson disease. The patient's thyroid is not enlarged, and his IV sites are benign appearing. LABORATORIES: Include a white count of 8100, platelet count 110,000. He has 16% bands and 1% metamyelocytes. His creatinine is 2.14. Lactic acid 2.6. LFT are normal. Bilirubin 1.6. Albumin 2.6. Procalcitonin is 8.9. Urinalysis, 11-50 white cells. Urine culture is pending. Unfortunately, it looks like he received antibiotics before the urine culture was done. In fact, I am certain that is true. A stool multiplex PCR study is negative. Blood cultures are positive for gram-negative rods on the 8th. Repeat blood cultures were done but they need not be, as it appears that the gram-negative rods in the blood are E. coli. A MRSA screen is pending. IMAGING: Includes a chest x-ray from admission which shows bibasilar consolidation, atelectasis, or pneumonia and small right pleural effusion. An abdominal and pelvic CT scan shows a hyperdense 9 mm nodule in the superior pole of the right kidney. There is also a slightly thickened bladder wall and a large prostate. The right effusion is noted on the CT and is described as moderate here. IMPRESSION: This patient has gram-negative septic shock, which has responded to IV fluids and fairly conservative measures. He is currently very stable on the jane. He remains incredibly confused, as is part of his ongoing dementia and has obvious evidence of advanced Parkinson disease. The source of the gram-negative, and probably Escherichia coli, bacteremia is unclear. This is either from a gastrointestinal or genitourinary source. The CT scan of the abdomen did not show any obvious site of infection there, and I am inclined to think this is probably a complicated urinary tract infection with bacteremia and septic shock, and we await the urine culture, which may be definitive in improving this point. Unfortunately, it is like the patient did get started on antibiotics before the urine culture was obtained though, so we may not have as clear cut of evidence that this is of urinary origin. RECOMMENDATIONS: 1. The patient is currently receiving cefepime and Flagyl. I see no indication for the Flagyl at this point, and we will stop it. 2. As we get back the susceptibilities on the E. coli in the blood tomorrow, we will be able to narrow the patient's antibiotics, and I would not be surprised if he could be discharged back to the [facility] fairly quickly, given his rapid return to hemodynamic stability.
--- NOTE | 2016-10-28 16:02 | NUR ---
Case Management: IMM explained to patient's son Yanick Hollingsworth at 1535, all questions answered. Signed copy placed in chart, copy given to son. Tg Hobson RN
--- NOTE | 2016-10-28 16:06 | NUR ---
Evaluation completed. Please go to "Notes" then click on "Assessments and Notes" (bottom left corner of screen). Then select appropriate discipline tab on top of screen.
--- NOTE | 2016-10-28 17:58 | NUR ---
Confusion/SPO2/Skin protection. Cardiac: Pt denies CP, Tele Aflutter/Paced 70-80's Resp: Pt denies SOB. SPO2 88% on 2L NC at AM assessment. O2 increased to 4L NC, SPO2 97%. Pt has weak ineffective non-productive cough. GI/: Pt denies n/v. Pt incontinent of stool and urine, Pt will pee in urinal if asked about need to void. Diet changed to Puree, honey thick, 1:1. Neuro: Pt is WC bound at baseline per report, pt has dementia and is only A&Ox1 to self. Increase in confusion this shift, and pt is more sleepy. Pt given Tylenol for complaints of generalized pain when turning and for fever. Fever peaked at 38.6 this shift. Pt put on P500 for skin protection. Heels floated.
--- NOTE | 2016-10-28 20:18 | PCM.PNMED ---
Subjective Date of Service Oct 28, 2016 Subjective Mr. Hollingsworth is an 89-year-old male with dementia, Parkinson's disease, coronary artery disease, congestive heart failure, atrial fibrillation, and hypertension presenting with nausea, vomiting and diarrhea. The patient is a resident of [facility] and unable to provide any meaningful history. Today is hospital day 2. He states that he is fine, but does not feel as good as he did yesterday. He felt warm and asked for a cool washcloth on his head. More thorough review of systems is limited secondary to patient's dementia. Per nursing, he had 1 loose stool overnight. Exam Vital Signs Vital Sign - Last Date Time Temp Pulse Resp B/P Pulse Ox O2 Delivery O2 Flow Rate FiO2 10/28/16 03:28 38.4 93 20 97/54 95 Nasal Cannula 2.00 Intake and Output 10/27/16 10/27/16 10/28/16 Cumulative From/Thru 14:59 22:59 06:59 10/26/16 19:30 - 10/28/16 06:04 Intake Total 950 ml 300 ml 3490 ml Output Total 100 ml 100 ml Balance 850 ml 300 ml 3390 ml Intake Oral 200 ml 100 ml 540 ml IV Total 750 ml 200 ml 2950 ml Output Urine Total 100 ml 100 ml # Voids 2 2 7 # Bowel Movements 2 2 4 Exam General: Patient lying supine in bed. Thin. No acute distress, well-developed, appropriately interactive HEENT: Normocephalic, atraumatic. Pupils equal, round, and reactive to light. Anicteric sclerae. Dry mucous membranes. Hearing aids bilaterally. Left temporal area with a ulcerated lesion. Neck: Supple with full range of motion. No jugular venous distension. No bruits. No lymphadenopathy or thyromegaly. Cardiovascular: Regular rate and rhythm with no murmurs, rubs, or gallops appreciated. Left chest wall with pacemaker. Pulmonary: Mild diffuse end-expiratory wheezing bilaterally. Normal respiratory effort with no use of accessory muscles. Abdomen: Bowel tones present. Nontender, nondistended. Extremities: Bilateral lower extremities with moderate pitting edema just distal to the knees, left>right. Right lower extremity with some erythema. Skin: Diffuse seborrheic keratosis throughout upper body. Increased warmth diffusely. Neurological: Patient is oriented to person. Cranial nerves grossly intact. Short term memory deficit. Psychiatric: Normal mood and affect. IVs and Medications Medications Reviewed: Medications were reviewed in detail Lab and Diagnostics Result Diagram: 10/28/16 0255 10/28/16 0255 X-Rays, CTs and MRIs CT ABDOMEN AND PELVIS Exam date: 10/26/2016 CONCLUSION: No specific acute abdominal process. Right pleural effusion. Correlate with history. Mild prominence of the left renal collecting system associated with some irregularity of the bladder. Urinary tract infection and bladder outlet obstruction should be excluded clinically. Low density lesions in the liver, probably cysts. These may need followup to confirm. Small cortical lesions in both kidneys. These also may need followup depending on history. Atherosclerotic vascular disease. Radiologist: Antolin Day MD ----- PROCEDURE: X-RAY CHEST ONE VIEW, PORTABLE IMPRESSION: Right pleural effusion with bibasilar consolidation or atelectasis. Approved by: Michelle Francois M.D. on 10/26/2016 at 21:25 12-lead ECG Sinus rhythm rate 77 with premature ventricular contractions No ST elevation myocardial infarction Assessment & Plan Mr. Hollingsworth is an 89-year-old male with dementia, Parkinson's disease, coronary artery disease, congestive heart failure, atrial fibrillation, and hypertension presenting with nausea, vomiting and diarrhea. The patient is a resident of [facility] and unable to provide any meaningful history. Today is hospital day 2. 1. Acute nausea, vomiting, and diarrhea. Present on admission. Improving. -Most likely, an acute mild gastroenteritis. Patient only had 1 episode of a small amount of emesis and 1 reported loose stool and incontinence of stool once. He has not vomited while admitted. -Patient initially was febrile in the emergency department, but most recent temperature 36.8 degrees C. -CT scan did not identify any acute abdominal process -Stool PCR all are negative -Influenza A negative -UA shows moderate leukocyte esterase, urine RBC 11-50, urine WBC 11-50 -Continue supportive care with ondansetron as needed -Patient continues to again receive intravenous normal saline at rate of 80 mL/ hour -Swallow evaluation completed and patient started on honey/pureed with 1:1 feeding and medication presented crushed in pureed. -Positive blood cultures for likely Escherichia coli -Urine cultures pending 2. Bacteremia. Present on admission. Active. -Positive blood cultures for likely Escherichia coli. Most likely from a urinary tract infection based on UA. -Patient is febrile today. -WBC 8.1 within normal limits -Procalcitonin and lactic acid both elevated -Infectious disease consulted and following. His time and recommendations are appreciated. -Antibiotics started last night prior to urine culture obtained. -Patient started on cefepime and metronidazole. Metronidazole discontinued. -Continue cefepime 3. Severe sepsis. Active. -Patient is febrile (38.4 degrees C), heart rate of 93, and hypotension at 03: 28 on 10/28/2016. Creatinine increased. -Positive blood cultures -Intravenous fluids and antibiotics as above 4. Acute urinary tract infection. Active. - UA shows moderate leukocyte esterase, urine RBC 11-50, urine WBC 11-50 -Patient is incontinent of urine likely secondary from dementia. -Urine cultures pending -Antibiotics as above 5. Elevated troponin. Acute. Present on admission. Active -long term reports oxygen desaturation in the 80s as the reason for being sent to the emergency department -Patient denies chest pain and dyspnea -Oxygen saturations had been 92%-98% on nasal cannula 2 liters oxygen but now increased to 4 liters of oxygen -Troponin 0.080 initially and third troponin 0.079 -Patient has history of mildly elevated troponin but has cardiac risk factors including: age, hypertension, atherosclerotic vascular disease -Elevation in troponin possibly demand ischemia or related to chronic congestive heart failure. EKG without ST elevation or depression. Repeat EKG in the morning did not show significant changes from previous EKG. -Procalcitonin elevated at 8.9 -Most likely from demand ischemia secondary to acute infection 6. Acute kidney injury, unknown acuity. Present on admission. Active -Creatinine 1.49 on admit and 2.14 this morning -Previous creatinine 05/07/2016 1.33 -Likely from volume depletion as result of #1 and #3 -Patient given intravenous normal saline at rate of 80 mL/hour. It was discontinued yesterday afternoon to avoid volume overloading the patient secondary to his congestive heart failure and holding his furosemide. Restarted today based on bacteremia and worsening creatinine. -Continue to monitor complete metabolic panel in the morning 7. Acute hypotension. Present on admission. Improving. -BP 80/42 in the emergency department but increased to 97/54 this morning -Likely secondary to volume depletion from #1 or #3 -Continue to monitor 8. Thrombocytopenia, unknown acuity. Present on admission. Active -Mild decreased platelets initially [id number] -Uncertain etiology - possibly infection, medication-induced, or lymphoma -Follow with complete blood count 9. Diastolic heart failure, chronic. Present on admission. Stable -Echocardiogram from 03/2016 shows ejection fraction of 55-60% with inferior wall moderate hypokinesis and septal motion consistent with conduction abnormality -Will hold furosemide due to hypotension -Patient given intravenous normal saline at rate of 80 mL/hour but discontinued yesterday afternoon to avoid volume overloading the patient secondary to his congestive heart failure and holding his furosemide. 10. Pleural effusion, chronic. Present on admission -Present on previous imaging studies going back to 2012 11. Atrial fibrillation, chronic. Present on admission -Currently rate controlled -Continue home medication metoprolol 12.5 mg daily 12. Essential hypertension, chronic. Present on admission -Currently hypotensive, see #7 above -Hold furosemide -Continue other home medications as patient's baseline systolic blood pressure in the 90s as reported by nursing staff at [facility] -Continue to monitor 13. Other chronic disease: dementia, Parkinson's -Continue home medications DVT prophylaxis: heparin every 8 hours Senna and Miralax as needed for constipation Acetaminophen as needed for pain Patient Status: Patient is admitted under observation status with expected length of stay more than 2 midnights due to risk of adverse event and complexity of treatment plan. Patient now has positive blood cultures and is febrile. VTE Prophylaxis: Sub-Q Heparin (Unfractionated) Resuscitation Status: DNR/DNI:Do Not Resuscitate/Intubate (Personally discussed code status with patient's next of kin and son, Yanick Hollingsworth )) Attending Statement The patient was seen and examined together with Dr. Mabry on 10/28/2016 and I agree with the history, exam and plan as outlined in the note above. . Ade Mabry DO Oct 28, 2016 07:48 Justin Alford MD Oct 30, 2016 08:13
--- NOTE | 2016-10-28 23:29 | NUR ---
VITALS/ANTIBIOTICS/SKIN PROTECTION Pt was febrile on day shift, but has been afebrile on heel top lift splitter. Pt has antibiotics and gentle fluids running @ 80ml/hr due to pt easily becoming fluid overloaded. Pt's lasix and BP meds are being held due to low BP's, current BP 89/54. No signs of fluid overload, no crackles heard upon auscultation of lungs. Pt's blood cultures came back + for gram neg. rods and gram variable rods. Pt on IV antibiotics. Pt was switched to a P500 bed for skin protection and on Q2 turns due to weakness and immobility. Heels floated, right heel slightly bogy. No c/o pain, no other issues noted at this time.
[2016-10-29] VITALS (7 sets, daily range): BP systolic 92–119; BP diastolic 52–64; PULSE 67–105; RESP 16–26; O2SAT 90–96
--- NOTE | 2016-10-29 04:02 | NUR ---
IV FLUIDS/OXYGEN Pt on 80ml/hr NS with a hx of fluid overloading easily. Lungs sound crackly on last assessment and pt was SOB on 2L NC sating in the low 80's. Pt switched to oxy mask 5L sating 90% and IV fluids stopped. Pt has home BP meds and Lasix being held due to low BP. Last BP 102/60. MD notified, chest x-ray ordered. Addendum: 10/29/16 at 0536 by CHAYA MCCORMICK RN FLUID OVERLOAD Pt was given 20mg Lasix and titrated down to 3L oxy mask sating in the mid 90's. Pt shows no signs of distress @ this time, will monitor output, labs, and lung sounds.
[2016-10-29] MEDS: Cefepime Inj 2,000 MG in Dextrose 5% Minibag Plus 50 ML IV SCH (04:24)
[2016-10-29 04:37] LABS: EOSINOPHILS % (AUTO) 0 % (0-5); Mean Corpuscular Hemoglobin 33.8 pg (27.0-35.0); Mean Corpuscular Volume 101.8 fL (81-100); Platelet Count 107 bil/L (150-400)
[2016-10-29 05:04] LABS: BASOPHILS % (AUTO) 0 % (0-3); MONOCYTES % (AUTO) 4 % (4-12); NEUTROPHILS % (AUTO) 74 % (40-74)
[2016-10-29] MEDS ORDERED: Furosemide 10 mg/mL 2 mL Inj IVPUSH ONE (05:15)
[2016-10-29] MEDS: Isosorbide Mononitrate 30 mg ER24 Tablet PO SCH (08:09)
[2016-10-29] MEDS: MeTOProlol XL 25 mg ER24 Tablet PO SCH (08:09)
[2016-10-29] MEDS: Potassium Chloride 20 mEq SR Tablet PO SCH ×2 (08:09→20:11)
[2016-10-29] MEDS: Heparin 5,000 Unit/mL Inj SUBQ SCH ×2 (08:10→17:09)
[2016-10-29] MEDS: Ertapenem Inj 1,000 MG in 0.9% Sodium Chloride 50 ML IV SCH ×2 (08:30→12:06)
--- NOTE | 2016-10-29 09:21 | PROG NOTE ---
[address] [address] PROGRESS NOTE PATIENT: RUBI WORTHY : 1925 MR#: [id number] ADMIT: 10/27/2016 JOB ID: [id number] DATE: 10/29/2016 INFECTIOUS DISEASE FOLLOWUP NOTE: REASON FOR FOLLOWUP: ESBL gram-negative septic shock. INTERVAL HISTORY: Overnight, the patient has become perhaps slightly more obtunded but recall that yesterday the patient was totally confused but due to his underlying Parkinson's and dementia but he, at least yesterday, was able to relate a history, most of which was inaccurate. Yesterday, he was sitting on the side of the bed and carried on a bit of a conversation. Today, he is lying flat back in his bed and appears somewhat stuporous. When aroused, he says he feels "alright." There is no additional history from this patient. I discussed this case in detail with the nursing staff at the bedside. The patient has required some Lasix overnight for what appeared to be fluid overload but otherwise, his oxygen requirements and blood pressure have been surprisingly stable, considering that he has an untreated gram-negative bacteremia. PHYSICAL: As mentioned, this is a demented gentleman who was somewhat alert, though demented yesterday. Today, he is quite lethargic. Overnight, his temperatures have been in the 38.5 range, though this morning is only 37 degrees. His pulse is 90, respiratory rate 20 to 22, blood pressure is currently 100/60. During the night he has been as low as 89 systolic. He is saturating fairly well but on 4 L and this represents a big increase from the past couple of days when he has been on 2 L primarily. The patient is hard to arouse. When he does, he will answer questions with one word which may or may not be appropriate. Mucous membranes are dry. Oral cavity without change. His lungs are notable for a few crackles at the bases. Cardiac tones without new murmur. His abdomen is soft and nontender. There is no apparent flank tenderness but the patient is lethargic enough, it is difficult to say. His extremities are without increased edema. LABORATORIES: Today include a white count of 5800, but a huge left shift with 17% metamyelocytes. His creatinine is 2.27. His liver function tests are normal except for a bilirubin 1.6. A procalcitonin is stable at 8.7, which is dramatically elevated, of course. His urinalysis has 11-50 white cells. Culture is pending. Hep C and hep B are negative. Micro studies are the relevant part of the story. His blood cultures on the and the are all growing E. coli, and this is an extremely resistant E. coli susceptible only to carbapenems and aminoglycosides. There is complete resistance to cefepime, which he has been receiving. In reviewing his cultures going back as far as the computer goes, he has never had indications of multi-drug resistant organisms in the past. IMPRESSION: This is an unfortunate 89-year-old gentleman with advanced Parkinson disease and dementia who lives in a memory care facility. He is brought here with gram-negative septic shock, which seemed to improve initially with fluid and conservative therapy. He was been treated with cefepime as of very broad-spectrum gram-negative agent. Unfortunately, the patient turns out to have an extended spectrum beta lactamase Escherichia coli and is completely resistant to all cephalosporins including cefepime. It is somewhat surprising that the patient is actually alive with this extended period of septic shock due to a basically untreated gram-negative suresh. This raises the question to where he acquired this organism and one must assume it was acquired at the [facility]. I will ask the infection control nurse to notify them. Now though we note this organism is, we will obviously discontinue the cefepime and start ertapenem. RECOMMENDATIONS: 1. Discontinue cefepime, and start ertapenem. 2. Will notify the infection control nurse about this organism, so that she can, in turn, provide feedback to the shelter facility. 3. The patient has been placed in isolation, and I have briefed the dean of women, as well as the nursing staff, about the importance of keeping this patient in strict contact isolation with this very "bad organism." 4. Note that I will be out of town the next three days, returning on November 02, but I can be reached by telephone about this or any other patient.
--- NOTE | 2016-10-29 09:54 | DRSVH ---
PROCEDURE: X-RAY CHEST ONE VIEW, PORTABLE ([id number]) INDICATIONS: decreased o2 sat TECHNIQUE: One view of the chest was acquired. COMPARISON: [facility], CR, XR CHEST 1VW (PORTABLE), 10/26/2016, 20:11. FINDINGS: Surgical changes and devices: Stable position left cardiac pacer. Lungs and pleura: Interval increase in perihilar and bibasilar airspace opacities. Persistent right pleural effusion and there is a new small left pleural effusion present. No pneumothorax. Mediastinum: Mediastinal contours appear normal. Heart size is normal. Bones and chest wall: No suspicious bony lesions. Overlying soft tissues appear unremarkable. IMPRESSION: 1. Increasing perihilar and basilar lung opacification consistent with patchy pulmonary edema, pneumo sergio or aspiration. Recommend clinical correlation. 2. Bilateral basilar pleural effusions. Dictated by: Shaggy FERNANDEZ Interpreted: Fidencio Kim MD on 10/29/2016 at 9:13 Transcribed by: ELMA on 10/29/2016 at 9:54 Approved by: Fidencio Kim M.D. on 10/29/2016 at 13:28
--- NOTE | 2016-10-29 11:22 | PCM.PNMED ---
Subjective Date of Service Oct 29, 2016 Subjective Mr. Hollingsworth is an 89-year-old male with dementia, Parkinson's disease, coronary artery disease, congestive heart failure, atrial fibrillation, and hypertension presenting with nausea, vomiting and diarrhea. The patient is a resident of [facility] and unable to provide any meaningful history. Today is hospital day 3. Overnight: His oxygen saturation dropped so he is now on oxymask. Intravenous fluids stopped. A chest x-ray was done and appeared that the patient had pulmonary edema, and patient was given 20 mg of IV furosemide. Today, Mr. Hollingsworth is more drowsy compared to yesterday but responds to his name. He states that "I think I'm fine." He requested that the bed be turned more towards "the bay." Later, he stated that he was not good. Exam Vital Signs Vital Sign - Last Date Time Temp Pulse Resp B/P Pulse Ox O2 Delivery O2 Flow Rate FiO2 10/29/16 04:54 90 10/29/16 03:24 37.0 20 101/62 96 Nasal Cannula 4.00 Intake and Output 10/28/16 10/28/16 10/29/16 Cumulative From/Thru 15:00 23:00 07:00 10/26/16 19:30 - 10/29/16 06:17 Intake Total 0 ml 0 ml 3490 ml Output Total 100 ml Balance 0 ml 0 ml 3390 ml Intake Oral 0 ml 0 ml 540 ml IV Total 2950 ml Output Urine Total 100 ml # Voids 3 4 14 # Bowel Movements 1 4 9 Exam General: Patient lying supine in bed. Thin. No acute distress, well-developed, appropriately interactive HEENT: Normocephalic, atraumatic. Pupils equal, round, and reactive to light. Anicteric sclerae. Dry mucous membranes. Hearing aids bilaterally. Left temporal area with a ulcerated lesion. Neck: Supple with full range of motion. No jugular venous distension. No bruits. No lymphadenopathy or thyromegaly. Cardiovascular: Regular rate and rhythm with no murmurs, rubs, or gallops appreciated. Left chest wall with pacemaker. Pulmonary: Mild diffuse end-expiratory wheezing and crackles bilaterally. Normal respiratory effort with no use of accessory muscles. Oxymask in place. Abdomen: Bowel tones present. Nontender, nondistended. Extremities: Bilateral lower extremities with mild pitting edema just distal to the knees, left>right. Right lower extremity with some mild erythema. Skin: Diffuse seborrheic keratosis throughout upper body. Increased warmth diffusely. Neurological: Patient is oriented to person. Cranial nerves grossly intact. Short term memory deficit. Psychiatric: Normal mood and affect. IVs and Medications Medications Reviewed: Medications were reviewed in detail Lab and Diagnostics Result Diagram: 10/29/1641910/29/16419 X-Rays, CTs and MRIs CT ABDOMEN AND PELVIS Exam date: 10/26/2016 CONCLUSION: No specific acute abdominal process. Right pleural effusion. Correlate with history. Mild prominence of the left renal collecting system associated with some irregularity of the bladder. Urinary tract infection and bladder outlet obstruction should be excluded clinically. Low density lesions in the liver, probably cysts. These may need followup to confirm. Small cortical lesions in both kidneys. These also may need followup depending on history. Atherosclerotic vascular disease. Radiologist: Antolin Day MD ----- PROCEDURE: X-RAY CHEST ONE VIEW, PORTABLE IMPRESSION: 1. Increasing perihilar and basilar lung opacification consistent with patchy pulmonary edema, pneumonia or aspiration. Recommend clinical correlation. 2. Bilateral basilar pleural effusions. Approved by: Fidencio Kim M.D. on 10/29/2016 at 13:28 12-lead ECG Sinus rhythm rate 77 with premature ventricular contractions No ST elevation myocardial infarction Assessment & Plan Mr. Hollingsworth is an 89-year-old male with dementia, Parkinson's disease, coronary artery disease, congestive heart failure, atrial fibrillation, and hypertension presenting with nausea, vomiting and diarrhea. The patient is a resident of [facility] and unable to provide any meaningful history. Today is hospital day 3. 1. Severe sepsis. Present on admission. Active. -Patient is febrile (38.4 degrees C), heart rate of 93, and hypotension at 03: 28 on 10/28/2016. Creatinine increased. -Positive blood cultures see #2 -Antibiotics as below -Hold IV fluids at this time since patient is hypervolemic -Swallow evaluation completed and patient started on honey/pureed with 1:1 feeding and medication presented crushed in pureed 2. Acute urinary tract infection. Present on admission. Active. - UA showed moderate leukocyte esterase, urine RBC 11-50, urine WBC 11-50 -Patient is incontinent of urine likely secondary from dementia. -Urine cultures show Escherichia coli -Antibiotics as below 3. Bacteremia. Present on admission. Active. -Most likely from urinary tract infection based on UA. See #2 -Positive blood cultures for Escherichia coli extended spectrum beta lactamase -Patient was febrile yesterday. -WBC 5.8 within normal limits -Procalcitonin elevated -Lactic acid down to 1.9 today -Infectious disease consulted and following. His time and recommendations are appreciated. -Antibiotics started prior to urine culture obtained. -Patient started on cefepime and metronidazole. Metronidazole discontinued. -Discontinued cefepime as the Escherichia coli is resistant and ertapenem was started today 10/29/2016 4. Acute nausea, vomiting, and diarrhea. Present on admission. Improving. -Most likely, an acute mild gastroenteritis. -Patient initially was febrile in the emergency department. -CT scan did not identify any acute abdominal process -Stool PCR all are negative -Influenza A negative -UA shows moderate leukocyte esterase, urine RBC 11-50, urine WBC 11-50 and see #2 -Continue supportive care with ondansetron as needed 5. Diastolic heart failure, chronic. Present on admission. Stable -Echocardiogram from 03/2016 shows ejection fraction of 55-60% with inferior wall moderate hypokinesis and septal motion consistent with conduction abnormality -Repeat chest x-ray shows increased pulmonary edema and patient required oxygen mask -Stopped IV fluids and restarted furosemide 6. Acute kidney injury, unknown acuity. Present on admission. Active -Creatinine 1.49 on admit and 2.27 this morning -Previous creatinine 05/07/2016 1.33 -Likely from volume depletion as result of #1 and #3 -Patient was given intravenous normal saline at rate of 80 mL/hour. It was discontinued yesterday afternoon to avoid volume overloading the patient secondary to his congestive heart failure and holding his furosemide. Restarted yesterday based on bacteremia and worsening creatinine. Hold fluids for now as patient was hypervolemic last night. -Continue to monitor complete metabolic panel in the morning 7. Thrombocytopenia, unknown acuity. Present on admission. Active -Mild decreased platelets initially 119,000. Today platelets are 107,000 -Uncertain etiology - possibly infection, medication-induced, or lymphoma -Follow with complete blood count 8. Elevated troponin. Acute. Present on admission. Active -halfway reports oxygen desaturation in the 80s as the reason for being sent to the emergency department -Patient denies chest pain and dyspnea -Oxygen saturations had been 92%-98% on nasal cannula 2 liters oxygen but now increased to 4 liters of oxygen -Troponin 0.080 initially and third troponin 0.079 -Patient has history of mildly elevated troponin but has cardiac risk factors including: age, hypertension, atherosclerotic vascular disease -Elevation in troponin possibly demand ischemia or related to chronic congestive heart failure. EKG without ST elevation or depression. Repeat EKG in the morning did not show significant changes from previous EKG. -Procalcitonin elevated at 8.9 -Most likely from demand ischemia secondary to acute infection 9. Acute hypotension. Present on admission. Improved. -BP 80/42 in the emergency department but increased to 97/54 this morning -Likely secondary to volume depletion from #1 or #4 -Continue to monitor 10. Pleural effusion, chronic. Present on admission -Present on previous imaging studies going back to 2012 11. Atrial fibrillation, chronic. Present on admission -Currently rate controlled -Continue home medication metoprolol 12.5 mg daily 12. Essential hypertension, chronic. Present on admission -Currently hypotensive, see #7 above -Hold furosemide -Continue other home medications as patient's baseline systolic blood pressure in the 90s as reported by nursing staff at [facility] -Continue to monitor 13. Other chronic disease: dementia, Parkinson's -Continue home medications DVT prophylaxis: heparin every 8 hours Senna and Miralax as needed for constipation Acetaminophen as needed for pain Patient Status: Patient is admitted under observation status with expected length of stay more than 2 midnights due to risk of adverse event and complexity of treatment plan. Patient now has positive blood cultures and is febrile. VTE Prophylaxis: Sub-Q Heparin (Unfractionated) Resuscitation Status: DNR/DNI:Do Not Resuscitate/Intubate (Personally discussed code status with patient's next of kin and son, Yanick Hollingsworth )) Attending Statement The patient was seen and examined together with Dr. Mabry on 10/29/2016 and I agree with the history, exam and plan as outlined in the note above. . Ade Mabry DO Oct 29, 2016 07:39 Justin Alford MD Oct 30, 2016 08:15 Ade Mbary DO Oct 29, 2016 07:39
--- NOTE | 2016-10-29 13:06 | NUR ---
NUTRITION ASSESSMENT Assess: 89 yo M w/ sepsis likely secondary to UTI. Pt complaining of nausea vomiting. Pt resides at [facility] and [facility]. PO intake has been poor. PMHx: Parkinson's, CAD, Afib, HTN, Dementia, Hearing loss, CHF, CVA, Basal cell carcinoma of left uatsdin, Prostate cancer, Functional paraplegia. LABS: BUN 48, Cr 2.27, Glu 105, Lactic acid 2.4, Ca 8.2, T-bili 1.6, Albumin 2.7 MEDICATIONS: Reviewed. K-dur GI symptoms/stool: BM x4 10/29 Skin integrity: Dusky purple heels; Gideon: 14 ANTHROPOMETRICS: Current Wt: 72 kg BMI: 24.1 kg/[id number] Wt: 70.3 kg IBW: 70 kgRecent wt changes: None noted ESTIMATED NEEDS: Functional paraplegia (-5%) Calories: 5093-7449 kcal/d (25-30 kcal/kg/d (-5%)) Protein: 70-85 g/d (1-1.2 g/kg/d) Fluids: 9215-2329 ml/d (1 ml/kcal/d) NUTRITION DIAGNOSIS: 1) Inadequate oral intake related to mental status as evidenced by PO intake of 0-25% and dementia. INTERVENTION: 1) Will send magic cups TID MONITOR/EVALUATE: PO intake, Labs, Wt, Nutrition status, POC. Will follow per high nutrition risk guidelines.
--- NOTE | 2016-10-29 17:54 | NUR ---
Blood cultures/O2/AMS The pt had + blood cultures resulted today; E-coli bacteremia. Dr. Fritz is following, and the pt is on appropriate ABX. The pt is now on contact precautions. The pt was on room air while awake today, with SAT's staying in the low 90's. TELE PR'ed. The pt remains confused secondary to dementia, and has begun picking at his IV. He is redirected, and will at times allow a tre sleeve.
[2016-10-29] MEDS: 0.9% Sodium Chloride 1,000 ML IV SCH (22:01)
--- NOTE | 2016-10-29 23:04 | NUR ---
MENTATION/SKIN PROTECTION Pt was pleasantly confused this evening, baseline dementia. Pt on contact precautions r/t E-coli bacteremia. Sacrum area slightly red and right heel is bogy. Q2 turns and float heels for skin protection r/t immobility and incontinence. Pt's vitals stable, on RA sating mid 90's, no pain or SOB. No other issues noted at this time.
[2016-10-30] MEDS: Heparin 5,000 Unit/mL Inj SUBQ SCH ×3 (01:51→16:30)
[2016-10-30 04:00] VITALS: BP 104/57; PULSE 83; RESP 20; O2SAT 96
[2016-10-30 04:55] LABS: Mean Corpuscular Hemoglobin 33.9 pg (27.0-35.0); Mean Corpuscular Volume 100.8 fL (81-100); Platelet Count 87 bil/L (150-400)
[2016-10-30 05:27] LABS: BASOPHILS % (AUTO) 0 % (0-3); EOSINOPHILS % (AUTO) 0 % (0-5); MONOCYTES % (AUTO) 14 % (4-12); NEUTROPHILS % (AUTO) 79 % (40-74)
[2016-10-30 08:20] VITALS: BP 112/75; PULSE 93; RESP 18; O2SAT 96
[2016-10-30 08:29] VITALS: RESP 22; O2SAT 93
[2016-10-30] MEDS: Ertapenem Inj 1,000 MG in 0.9% Sodium Chloride 50 ML IV SCH (08:30)
[2016-10-30] MEDS: Potassium Chloride 20 mEq SR Tablet PO SCH ×2 (08:31→19:06)
[2016-10-30] MEDS: MeTOProlol XL 25 mg ER24 Tablet PO SCH (08:31)
[2016-10-30] MEDS: Isosorbide Mononitrate 30 mg ER24 Tablet PO SCH (08:31)
--- NOTE | 2016-10-30 10:46 | DRSVH ---
PROCEDURE: X-RAY CHEST ONE VIEW, PORTABLE ([id number]) INDICATIONS: oxygen destaturation TECHNIQUE: One view of the chest was acquired. COMPARISON: [facility], CT, CT ABD PELVIS WO CON, 10[facility]26/2016, 22:09[facility] 1[facility]W (PORTABLE), 10/29/2016, 4:04. FINDINGS: Surgical changes and devices: Single AP pacer is unchanged. Lungs and pleura: There are increased pulmonary opacities within the mid and lower lungs bilaterally when compared with the study dated 10/29/16. Bilateral pleural effusions are redemonstrated. Mediastinum: Mediastinal contours appear normal. Heart size is normal. Bones and chest wall: No suspicious bony lesions. Overlying soft tissues appear unremarkable. IMPRESSION: Increased pulmonary radiopacities when compared with the prior study suggesting worsening infection/aspiration or fluid overload. Dictated by: Radha Katz M.D. on 10/30/2016 at 10:44 Approved by: Radha Katz M.D. on 10/30/2016 at 10:45
[2016-10-30] MEDS ORDERED: Sodium Chloride LOK Flush 10 mL Syringe IVFLUSH PRN ×2 (10:50)
[2016-10-30] MEDS ORDERED: Furosemide 10 mg/mL 4 mL Inj IVPUSH ONE (11:35)
[2016-10-30 13:06] VITALS: BP 125/75; PULSE 100; RESP 20; O2SAT 88
[2016-10-30] MEDS ORDERED: Morphine 100 mg/100 mL NS 100 MG in IV Premix 1 EACH IV SCH (13:35)
[2016-10-30] MEDS ORDERED: Dexamethasone 4 mg/mL Inj IVPUSH SCH (13:35)
[2016-10-30] MEDS ORDERED: Atropine 1% 5 mL Ophthalmic Solution PO PRN (13:35)
[2016-10-30] MEDS ORDERED: Artificial Tears 15 mL Ophthalmic Solution AFFECT_EYE PRN (13:35)
[2016-10-30] MEDS ORDERED: Ondansetron 2 mg/mL 2 mL Inj IVPUSH PRN (13:35)
[2016-10-30] MEDS ORDERED: LORazepam 100 mg/100 mL NS 100 MG in IV Premix 1 EACH IV SCH (13:35)
[2016-10-30] MEDS ORDERED: Haloperidol 5 mg/mL Inj IVPUSH PRN (13:35)
[2016-10-30] MEDS ORDERED: LORazepam Inj 100 MG in 0.9% Sodium Chloride 50 ML IV SCH (13:54)
[2016-10-30] MEDS: 0.9% Sodium Chloride 1,000 ML IV SCH (15:02)
--- NOTE | 2016-10-30 15:03 | PCM.PNMED ---
Subjective Date of Service Oct 30, 2016 Subjective Mr. Hollingsworth is an 89-year-old male with dementia, Parkinson's disease, coronary artery disease, congestive heart failure, atrial fibrillation, and hypertension presenting with nausea, vomiting and diarrhea. The patient is a resident of [facility] and unable to provide any meaningful history. Today is hospital day 4. Overnight: His oxygen saturation drops randomly to the 70s. Today, Mr. Hollingsworth is increasingly drowsy and will open his eyes to his name, but he does not respond to questions. Exam Vital Signs Vital Sign - Last Date Time Temp Pulse Resp B/P Pulse Ox O2 Delivery O2 Flow Rate FiO2 10/30/16 04:00 36.9 83 20 104/57 96 Room Air 10/29/16 08:00 2.00 Intake and Output 10/29/16 10/29/16 10/30/16 Cumulative From/Thru 15:00 23:00 07:00 10/26/16 19:30 - 10/30/16 06:28 Intake Total 60 ml 200 ml 3750 ml Output Total 100 ml Balance 60 ml 200 ml 3650 ml Intake Oral 200 ml 740 ml IV Total 60 ml 0 ml 3010 ml Output Urine Total 100 ml # Voids 2 16 # Bowel Movements 2 11 Exam Exam General: Patient lying supine in bed. Thin. Drowsy. No acute distress. HEENT: Normocephalic, atraumatic. Bilateral eyes with purulent drainage. Pupils equal, round, and reactive to light. Anicteric sclerae. Dry mucous membranes. Hearing aids bilaterally. Left temporal area with a ulcerated lesion. Neck: Supple with full range of motion. No jugular venous distension. No bruits. No lymphadenopathy or thyromegaly. Cardiovascular: Regular rate and rhythm with no murmurs, rubs, or gallops appreciated. Left chest wall with pacemaker. Pulmonary: Mild diffuse end-expiratory wheezing and crackles bilaterally. Normal respiratory effort with no use of accessory muscles. Oxymask in place. Abdomen: Bowel tones present. Nontender, nondistended. Extremities: Bilateral lower extremities with mild pitting edema just distal to the knees, left>right. Right lower extremity with some mild erythema. Left upper arm edema. Skin: Diffuse seborrheic keratosis throughout upper body. Neurological: Drowsy. Opens his eyes to verbal stimuli. Tremor. Cranial nerves grossly intact. Short term memory deficit. Psychological: Patient is drowsy today as described above. IVs and Medications Medications Reviewed: Medications were reviewed in detail Lab and Diagnostics Result Diagram: 10/30/1644410/30/16444 X-Rays, CTs and MRIs CT ABDOMEN AND PELVIS Exam date: 10/26/2016 CONCLUSION: No specific acute abdominal process. Right pleural effusion. Correlate with history. Mild prominence of the left renal collecting system associated with some irregularity of the bladder. Urinary tract infection and bladder outlet obstruction should be excluded clinically. Low density lesions in the liver, probably cysts. These may need followup to confirm. Small cortical lesions in both kidneys. These also may need followup depending on history. Atherosclerotic vascular disease. Radiologist: Antolin Day MD ----- PROCEDURE: X-RAY CHEST ONE VIEW, PORTABLE IMPRESSION: Increased pulmonary radiopacities when compared with the prior study suggesting worsening infection/aspiration or fluid overload. Approved by: Radha Katz M.D. on 10/30/2016 at 10:45 12-lead ECG Sinus rhythm rate 77 with premature ventricular contractions No ST elevation myocardial infarction Assessment & Plan Mr. Hollingsworht is an 89-year-old male with dementia, Parkinson's disease, coronary artery disease, congestive heart failure, atrial fibrillation, and hypertension presenting with nausea, vomiting and diarrhea. The patient is a resident of [facility] and unable to provide any meaningful history. Today is hospital day 3. 1. Severe sepsis. Present on admission. Active. -Patient is febrile (38.4 degrees C), heart rate of 93, and hypotension at 03: 28 on 10/28/2016. Creatinine increased. -Positive blood cultures see #2 -Antibiotics as below -Hold IV fluids at this time since patient is hypervolemic -Swallow evaluation completed and patient started on honey/pureed with 1:1 feeding and medication presented crushed in pureed -Patient's family has decided to pursue comfort care. 2. Acute urinary tract infection. Present on admission. Active. - UA showed moderate leukocyte esterase, urine RBC 11-50, urine WBC 11-50 -Possibly due to prostate obstruction -Patient is incontinent of urine likely secondary from dementia. -Urine cultures show Escherichia coli -Samuels catheter to be inserted for comfort care measures 3. Bacteremia. Present on admission. Active. -Most likely from urinary tract infection based on UA. See #2 -Positive blood cultures for Escherichia coli extended spectrum beta lactamase -Patient was febrile yesterday. -WBC 5.8 within normal limits -Procalcitonin elevated -Lactic acid down to 1.9 today -Infectious disease consulted and following. His time and recommendations are appreciated. -Antibiotics started prior to urine culture obtained. -Patient started on cefepime and metronidazole. Metronidazole discontinued. -Discontinued cefepime as the Escherichia coli is resistant and ertapenem was started on 10/29/2016 -Patient's family has decided to pursue comfort care 4. Acute nausea, vomiting, and diarrhea. Present on admission. Improving. -Most likely, an acute mild gastroenteritis. -Patient initially was febrile in the emergency department. -CT scan did not identify any acute abdominal process -Stool PCR all were negative -Influenza A negative -UA showed moderate leukocyte esterase, urine RBC 11-50, urine WBC 11-50 and see #2 -Continue supportive care with ondansetron as needed 5. Diastolic heart failure, chronic. Present on admission. Stable -Echocardiogram from 03/2016 shows ejection fraction of 55-60% with inferior wall moderate hypokinesis and septal motion consistent with conduction abnormality -Repeat chest x-ray shows increased pulmonary edema and patient required oxygen mask -Stopped IV fluids and restarted furosemide one 20 mg dose given 6. Acute kidney injury, unknown acuity. Present on admission. Active -Creatinine 1.49 on admit and 2.37 this morning -Previous creatinine 05/07/2016 1.33 -Likely from volume depletion as result of #1 and #3 -Patient was given intravenous normal saline at rate of 80 mL/hour. It was discontinued yesterday afternoon to avoid volume overloading the patient secondary to his congestive heart failure and holding his furosemide. Restarted yesterday based on bacteremia and worsening creatinine. Hold fluids for now as patient was hypervolemic last night. -Possibly from obstruction from enlarged prostate that contributed to the above urinary tract infection. 7. Thrombocytopenia, unknown acuity. Present on admission. Active -Mild decreased platelets initially 119,000. Today platelets are 107,000 -Uncertain etiology - possibly infection, medication-induced, or lymphoma 8. Elevated troponin. Acute. Present on admission. Active -Most likely from demand ischemia secondary to acute infection -[facility] reports oxygen desaturation in the 80s as the reason for being sent to the emergency department -Patient denied chest pain and dyspnea -Oxygen saturations had been 92%-98% on nasal cannula 2 liters oxygen but now increased to 4 liters of oxygen -Troponin 0.080 initially and third troponin 0.079 -Patient has history of mildly elevated troponin but has cardiac risk factors including: age, hypertension, atherosclerotic vascular disease -Elevation in troponin possibly demand ischemia or related to chronic congestive heart failure. EKG without ST elevation or depression. Repeat EKG in the morning did not show significant changes from previous EKG. -Procalcitonin elevated at 8.9 9. Acute hypotension. Present on admission. Improved. -BP 80/42 in the emergency department but increased to 97/54 this morning -Likely secondary to volume depletion from #1 or #4 10. Pleural effusion, chronic. Present on admission -Present on previous imaging studies going back to 2012 11. Atrial fibrillation, chronic. Present on admission -Currently rate controlled -Continued home medication metoprolol 12.5 mg daily 12. Essential hypertension, chronic. Present on admission -Currently hypotensive, see #7 above -Hold furosemide -Continued other home medications as patient's baseline systolic blood pressure in the 90s as reported by nursing staff at [facility] 13. Other chronic disease: dementia, Parkinson's -Continued home medications DVT prophylaxis: heparin every 8 hours Senna and Miralax as needed for constipation Acetaminophen as needed for pain Patient Status: Patient is admitted under observation status with expected length of stay more than 2 midnights due to risk of adverse event and complexity of treatment plan. Disposition: Patient is now on comfort care measures with family at bedside. Pain Evaluation: Adequate Pain Control VTE Prophylaxis: Sub-Q Heparin (Unfractionated) Resuscitation Status: DNR/DNI:Do Not Resuscitate/Intubate (Personally discussed code status with patient's next of kin and son, Yanick Hollingsworth )) Attending Statement The patient was seen and examined together with Dr. Mabry on 10/30/2016 and I agree with the history, exam and plan as outlined in the note above. . Ade Mabry DO Oct 30, 2016 07:48 Justin Alford MD Oct 31, 2016 08:14
--- NOTE | 2016-10-30 18:41 | NUR ---
Comfort Care The pt has been moved to comfort care. No oxygen per family request, morphine drip at 5mg/hr, Lorazepam at 3mg/hour and sanchez inserted. Family at the bedside.
[2016-10-31] MEDS: 0.9% Sodium Chloride 1,000 ML IV SCH (02:02)
[2016-10-31] MEDS: Heparin 5,000 Unit/mL Inj SUBQ SCH (02:02)
--- NOTE | 2016-10-31 02:02 | NUR ---
Comfort Care Minimal assessment performed at 2100, as pt is on comfort care. strong pulses noted in all four extremities. Pt non arousable. RR 11. DPOA at bedside, states he will be back in AM and to call overnight for any changes. 2229 pt noted to have a rattle in breathing, oral care performed and atropine drops administered. Pt breathing with more effort, noted from shoulder movement with each breath. Morphine gtt increased to 6mg/hr from 5mg/hr. 0000 pt appears more comfortable, no effort noted with breathing, RR decreased to 8-9. 0208 RR continues at 7-8 with longer apnea periods. Addendum: 10/31/16 at 0349 by ELLA WOOD RN 0330 RR now 6/min. More shallow, still appears comfortable. Feet are now cool and white. Addendum: 10/31/16 at 0609 by ELLA WOOD RN 0430 pt continues at 6 RR/min 0520 pt has , no heartbeat, no breaths. Family and Dr Jimenez notified.
--- NOTE | 2016-11-02 18:19 | PCM.DC.MEX ---
Discharge Summary Date of Service Nov 02, 2016 Dates of Hospitalization Date of Hospital Admission Oct 27, 2016 at 00:55 Date of Expiration: Oct 31, 2016 Time of Expiration: 05:20 Providers: Admitting Physician: Aime Marie MD Primary Care Physician: Christiano De Anda MD Attending Physician: Aime Marie MD Diagnosis at Time of 1. Severe sepsis, acute. 2. Acute urinary tract infection. 3. Bacteremia, acute. 4. Acute nausea, vomiting, and diarrhea. 5. Diastolic heart failure, chronic. 6. Acute kidney injury, unknown acuity. 7. Thrombocytopenia, unknown acuity. 8. Elevated troponin. Acute. 9. Acute hypotension. 10. Pleural effusion, chronic. 11. Atrial fibrillation, chronic. 12. Essential hypertension, chronic. 13. Other chronic disease: dementia, Parkinson's Procedures XRay, CTs & MRIs CT ABDOMEN AND PELVIS Exam date: 10/26/2016 CONCLUSION: No specific acute abdominal process. Right pleural effusion. Correlate with history. Mild prominence of the left renal collecting system associated with some irregularity of the bladder. Urinary tract infection and bladder outlet obstruction should be excluded clinically. Low density lesions in the liver, probably cysts. These may need followup to confirm. Small cortical lesions in both kidneys. These also may need followup depending on history. Atherosclerotic vascular disease. Radiologist: Antolin Day MD ----- PROCEDURE: X-RAY CHEST ONE VIEW, PORTABLE IMPRESSION: Increased pulmonary radiopacities when compared with the prior study suggesting worsening infection/aspiration or fluid overload. Approved by: Radha Katz M.D. on 10/30/2016 at 10:45 ECG 12 Lead Sinus rhythm rate 77 with premature ventricular contractions No ST elevation myocardial infarction Brief History From the history and physical performed by Dr. Hussein Beltran on 10/27/2016: Patient is an 89-year-old male with dementia, Parkinson's disease, CAD, CHF, atrial fibrillation and hypertension presenting with nausea, vomiting and diarrhea. The patient is a resident of [facility] and unable to provide any meaningful history. At time of visit there is no family at bedside. Much of the history is obtained from chart review. Patient reportedly had complaints of chest pain, nausea, vomiting and diarrhea at his living facility but it was noted that the patient denied chest pain en route to [facility] ED. At time of visit, the patient reports feeling well without complaints. Patient denies chest pain, nausea, emesis, diarrhea, abdominal pain, cough, chills. CT scan of abdomen and pelvis reads mild prominence of the left renal collecting system associated with some irregularity of the bladder; low density lesions in the liver, probable cysts, and small cortical lesions in both kidneys, otherwise no specific acute abdominal process was identified . In the ED, vitals: temp 38.1, HR 72, RR 17 satting 95% on room air, BP 109/52. Notable labs: creatinine 1.49, troponin 0.080. Hospital Course Mr. Hollingsworth is an 89-year-old male with dementia, Parkinson's disease, coronary artery disease, congestive heart failure, atrial fibrillation, and hypertension presenting with nausea, vomiting and diarrhea. 1. Severe sepsis, acute. Present on admission. Active. -Patient was febrile (38.4 degrees C), heart rate of 93, and hypotension at 03: 28 on 10/28/2016. Creatinine increased. -Positive blood cultures and urinary tract infection see #2 and #3 -Antibiotics as below -Held IV fluids since patient was hypervolemic. -Patient had worsening kidney function and lung function as well as increased confusion. Patient's son was notified about patient's condition, and patient's family had decided to pursue comfort care. 2. Acute urinary tract infection. Present on admission. Active. -Urinalysis showed moderate leukocyte esterase, urine red blood cell count 11-50 , urine white blood cell count 11-50 -Possibly due to prostate obstruction -Urine cultures showed Escherichia coli extended spectrum beta lactamase -Samuels catheter was inserted for comfort care measures 3. Bacteremia, acute. Present on admission. Active. -Most likely from urinary tract infection, which also grew extended spectrum beta-lactamase Escherichia coli in the urine culture. See #2 -Positive blood cultures for Escherichia coli extended spectrum beta lactamase -Patient was febrile intermittently -WBC 6 within normal limits, procalcitonin elevated, and lactic acid 2.5 -Infectious disease consulted and following. His time and recommendations were appreciated. -Patient started on cefepime and metronidazole. Metronidazole discontinued. -Discontinued cefepime as the Escherichia coli that grew in both the patient's blood and urine was resistant and ertapenem was started on 10/29/2016 -Patient's family had decided to pursue comfort care and comfort care measures were started, including lorazepam and morphine per protocol. 4. Acute nausea, vomiting, and diarrhea. Present on admission. Improved. -Most likely, an acute gastroenteritis in addition to a urinary tract infection. -Patient initially was febrile in the emergency department. -CT scan did not identify any acute abdominal process -Stool PCR all were negative -Influenza A negative -Urinalysis as above, see #2 -Continued supportive care with ondansetron as needed 5. Diastolic heart failure, chronic. Present on admission. Active. -Echocardiogram from 03/2016 showed ejection fraction of 55-60% with inferior wall moderate hypokinesis and septal motion consistent with conduction abnormality -[facility] reported oxygen desaturation in the 80s as the reason for being sent to the emergency department -Patient denied chest pain and dyspnea -Oxygen saturations had been 92%-98% on nasal cannula 2 liters oxygen but then increased to 4 liters of oxygen with an oxygen mask -Repeat chest x-ray showed increased pulmonary edema and patient required oxygen mask -Stopped intravenous normal saline fluids and restarted furosemide 6. Acute kidney injury, unknown acuity. Present on admission. Active. -Possibly from obstruction from enlarged prostate that contributed to the above urinary tract infection. -Creatinine 1.49 on admit and increased to 2.37 -Previous creatinine 05/07/2016 1.33 -Likely from volume depletion as result of #1 and #4 7. Thrombocytopenia, unknown acuity. Present on admission. Active. -Platelets initially 119,000 and decreased to 87,000 -Uncertain etiology, possibly infection, medication-induced, or lymphoma 8. Elevated troponin. Acute. Present on admission. Active. -Most likely from demand myocardial ischemia secondary to acute sepsis -Troponin 0.080 initially and third troponin 0.079 -Patient had history of mildly elevated troponin -EKG without ST elevation or depression. Repeat EKG did not show significant changes from previous EKG. -See #5 above 9. Acute hypotension. Present on admission. Improved. -BP 80/42 in the emergency department but increased to 125/75 -Likely secondary to volume depletion from #1 and #4 10. Pleural effusion, chronic. Present on admission -Present on previous imaging studies going back to 2012 11. Atrial fibrillation, chronic. Present on admission -Currently rate controlled -Continued home medication metoprolol 12.5 mg daily and held if patient was bradycardic 12. Essential hypertension, chronic. Present on admission -Patient was hypotensive, see #9 above -Continued other home medications as patient's baseline systolic blood pressure in the 90s as reported by nursing staff at [facility] facility 13. Other chronic disease: dementia, Parkinson's -Continued home medications -Swallow evaluation completed and patient started on honey/pureed with 1:1 feeding and medication presented crushed in pureed Exam Test 10/27/16 08:15 10/28/16 02:55 10/28/16 04:15 10/28/16 13:10 Troponin T 0.079ug/L (0.0-0.011) Blood Smear Pathologist Review Hold Christy Top Tube Received (Received) Urine Color Yellow (YELLOW) Urine Appearance Hazy (CLEAR,HAZY) Urine pH 6.0 (5.0-8.0) Urine Specific [place] 1.010 (1.003-1.035) Urine Protein 30mg/dL (NEG,TRACE) Urine Glucose (UA) Negativemg/dL (NEGATIVE) Urine Ketones Negativemg/dL (NEGATIVE) Urine Occult Blood Large (NEGATIVE) Urine Nitrite Negative (NEGATIVE) Urine Bilirubin Negative (NEGATIVE) Urine Urobilinogen 0.2mg/dL (NORMAL) Urine Leukocyte Esterase Moderate (NEGATIVE) Urine RBC 11-50/hpf (0-2) Urine WBC 11-50/hpf (0-5) Urine Epithelial Cells Occasional/hpf (NONE-MOD) Urine Crystals None seen (NONE SEEN) Urine Bacteria Few/hpf (NONE-FEW) Urine Hyaline Casts None/lpf (NONE) Urine Granular Casts None seen (NONE SEEN) Urine Waxy Casts None seen (NONE SEEN) Urine Red Blood Cell Casts None seen (NONE SEEN) Urine White Blood Cell Casts None seen (NONE SEEN) Urine Mucus None seen (None Seen) Urine Trichomonas None seen (NONE SEEN) Urine Yeast None (NONE SEEN) Urinalysis Comment None Urine Culture Reflexed Indicated Test 10/29/16 04:20 10/30/16 04:45 Metamyelocytes % 17% (0-0) Myelocytes % 0% (0-0) Promyelocytes % 0% (0-0) Blast Cells % 0% (0-0) Nucleated Red Blood Cells 0/100 WBC (0-24) Hematology Comments White Blood Count 6.0th/mm3 (3.8-10.1) Red Blood Count 3.92mil/mm3 (4.40-5.80) Hemoglobin 13.3g/dL (13.8-17.2) Hematocrit 39.5% (41.0-50.0) Mean Corpuscular Volume 100.8fL (81-100) Mean Corpuscular Hemoglobin 33.9pg (27.0-35.0) Mean Corpuscular Hemoglobin Concent 33.7% (32.0-37.0) Red Cell Distribution Width 14.5% (12.3-15.4) Platelet Count 87bil/L (150-400) Neutrophils (%) (Auto) 79% (40-74) Lymphocytes (%) (Auto) 4% (14-46) Monocytes (%) (Auto) 14% (4-12) Eosinophils (%) (Auto) 0% (0-5) Basophils (%) (Auto) 0% (0-3) Band Neutrophils % 3% (1-5) Sodium Level 142mEq/L (134-144) Potassium Level 4.5mEq/L (3.5-5.2) Chloride Level 103mEq/L (97-108) Carbon Dioxide Level 26mmol/L (18-29) Blood Urea Nitrogen 57mg/dL (8-27) Creatinine 2.37mg/dL (0.76-1.27) Estimat Glomerular Filtration Rate 28mL/min (>59) Glucose Level 117mg/dL (60-99) Lactic Acid Level 2.5mmol/L (0.4-2.0) Calcium Level 8.2mg/dL (8.5-10.1) Total Bilirubin 1.1mg/dL (0.0-1.2) Aspartate Amino Transf (AST/SGOT) 51U/L (0-50) Alanine Aminotransferase (ALT/SGPT) 22U/L (0-44) Alkaline Phosphatase 58U/L (25-160) Total Protein 4.7g/dL (6.4-8.4) Albumin 2.3g/dL (3.4-5.0) Prealbumin 4mg/dL (20-40) Procalcitonin 6.06ng/mL (0.00-0.08) Attending Statement The patient was discussed together with Dr. Mabry on 10/31/2016 and I agree with the history as outlined in the note above. . copies to: Christiano De Anda MD, Marissa L DO Nov 02, 2016 18:19 Justin Alfodr MD Nov 03, 2016 08:39
== END 2016-10-31 05:20 | disposition expired | DRG 871 ==
LOC: EDBD 19:11 → SED 19:11 → OBSVTOIN 10-27 00:55 → PCC 10-27 00:55
PROVIDERS: ADMIT Hospitalist; ATTEND Hospitalist
DX: A41.51 Sepsis due to Escherichia coli [E. coli] (principal); R65.21 Severe sepsis with septic shock; N17.9 Acute kidney failure, unspecified; I50.32 Chronic diastolic (congestive) heart failure; N39.0 Urinary tract infection, site not specified; D69.6 Thrombocytopenia, unspecified; I25.10 Atherosclerotic heart disease of native coronary artery without angina pectoris; G20 Parkinson's disease; F02.80 Dementia in other diseases classified elsewhere, unspecified severity, without behavioral disturbance, psychotic disturbance, mood disturbance, and anxiety; I10 Essential (primary) hypertension; Z86.73 Personal history of transient ischemic attack (TIA), and cerebral infarction without residual deficits; Z87.891 Personal history of nicotine dependence; I48.2 Chronic atrial fibrillation; Z66 Do not resuscitate; Z16.19 Resistance to other specified beta lactam antibiotics; B96.29 Other Escherichia coli [E. coli] as the cause of diseases classified elsewhere